=== PATIENT | male | born 1950 | race Caucasian/White ===

== ENCOUNTER 2019-04-26 02:25 | Inpatient (IN) | payer OTHER ==
[~2019-04-26] VITALS: Ht 182.9 cm; Wt 97.7 kg
[2019-04-26] MEDS ORDERED: LISINOPRIL40 MG PO (02:30)
[2019-04-26] MEDS ORDERED: BP MEDS (02:30)
[2019-04-26] MEDS ORDERED: GLUCOPHAGE500 MG PO (02:31)
[2019-04-26] MEDS ORDERED: LANTUS INSULIN10 ML SC (02:31)
[2019-04-26 02:56] LABS: BASOPHILS 0.1 % (0-2); EOSINOPHILS 0 % (0-7); HEMATOCRIT 39.7 % (42.0-54.0); HEMOGLOBIN 14.3 g/dL (13.5-17.5); IMMATURE GRANULOCYTES 0.5 % (0-5); LYMPHOCYTES 5.5 % (15-50); MCH 31.8 pg (26.0-34.0); MCV 88.2 fL (80.0-100.0); MEAN PLATELET VOLUME 10.9 fL (7.4-10.4); MONOCYTES 4.2 % (2-11); NEUTROPHILS 89.7 % (40-80); PLATELET COUNT 242 10x3/uL (130-400); RDW 13.5 % (11.5-14.5); WBC 17.1 10x3/uL (4.8-10.8)
[2019-04-26 02:59] LABS: INR 1.11 (0.85-1.17); PROTIME 13.8 SECONDS (11.6-15.0)
[2019-04-26 03:00] LABS: APTT 45.4 SECONDS (22.8-39.4)
[2019-04-26 03:05] VITALS: BP 164/88
--- NOTE | 2019-04-26 03:08 | NUR ---
PT AMBULATED TO RESTROOM INDEPENDENTLY.
[2019-04-26 03:20] LABS: ALBUMIN 3.5 g/dL (3.4-5.0); ALKALINE PHOSPHATASE 62 U/L (46-116); ALT (SGPT) 39 U/L (10-68); BILIRUBIN - TOTAL 0.53 mg/dL (0.2-1.3); CALCIUM 9.2 mg/dL (8.5-10.1); CARBON DIOXIDE 22.2 mmol/L (21.0-32.0); CHLORIDE - SERUM 96 mmol/L (98-107); CKMB 6.9 U/L (0.0-3.6); CREATINE KINASE 426 UL (21-232); CREATININE - SERUM 2.1 mg/dL (0.6-1.3); POTASSIUM - SERUM 3.9 mmol/L (3.5-5.1); PROTEIN - SERUM 7.9 g/dL (6.4-8.2); SODIUM 135 mmol/L (136-145); UREA NITROGEN 32 mg/dL (7-18); eGFR NON AFRICAN AMERICAN 33 mL/min (90-120)
[2019-04-26 03:22] LABS: CALC OSMOLALITY 297 mosm/kg (275-300); GLUCOSE 475 mg/dL (74-106); TROPONIN-I 0.153 ng/mL (0.000-0.060)
[2019-04-26 03:45] VITALS: BP 148/84
--- NOTE | 2019-04-26 04:44 | NUR ---
PT ARRIVED TO FLOOR VIA WHEELCHAIR ALERT AND ORIENTED X4. PT VITALS STABLE. BP-143/84 P-92 O2-96% T-98.3 RR-18. PT PLACED ON TELEMETRY RUNNING 94 SR, PER UNDERWRITING DIRECTOR. PT COMPLAINS OF 3/10 CHEST PAIN AT THIS TIME. PT NPO AT THIS TIME. 1/2 NORMAL SALINE RUNNING AT 50ML/HR. DR. QUEENIE HANSOND 10MG APRESOLINE IV INJEVTION. PT IS UP ADLIB WITHIUT DIFFICULTY. BED LOW CALL LIGHT WITHIN REACH. WILL CONTINUE TO MONITOR.
[2019-04-26 05:02] VITALS: BP 164/88; BMI 29.2
--- NOTE | 2019-04-26 07:00 | NUR ---
RECEIVED REPORT. ASSUMED CARE OF PATIENT. PATIENT LYING SUPINE WITH EYES OPEN. DENIES NEEDS AT THIS TIME. DENIES HEADACHE OR CHEST PAIN. PATIENT STATES HE THOUGHT HE WAS GOING HOME TODAY. THIS HOSPITAL TRAY SERVICE WORKER EXPLAINED THAT PATIENT IS SCHEDULED TO SEE CARDIOLOGY THIS AM FOR EVENTS BRINGING HIM TO THE HOSPITAL. PATIENT INFORMED TO NOT EAT AM MEAL, NPO UNTIL IS SEEN BY CARDIOLOGY. HERE AT THIS TIME ROUNDING. RESP EVEN AND UNLABORED. NO DISTRESS. CALL LIGHT WITHIN REACH.
[2019-04-26 08:02] VITALS: BP 142/81
--- NOTE | 2019-04-26 09:03 | NUR ---
NEW ORDER TO HOLD HYDRALAZINE PER ENRIQUETA HENDERSON.
[2019-04-26 09:26] LABS: CKMB 9.3 U/L (0.0-3.6); CREATINE KINASE 329 UL (21-232)
[2019-04-26 09:27] LABS: TROPONIN-I 1.211 ng/mL (0.000-0.060)
--- NOTE | 2019-04-26 10:49 | NUR ---
CHARGING PHONE FOR PATIENT AT NURSES STATION. PATIENT RESTING IN BED. NO DISTRESS.
[2019-04-26 11:25] VITALS: Ht 182.9 cm; Wt 97.7 kg
--- NOTE | 2019-04-26 11:38 | NUR ---
FSBS 275. 10 UNITS HUMALOG ADMINISTERED PER SLIDING SCALE. PATIENT STATES HE DOES NOT TAKE LANTUS AT THIS TIME, HE STATES HE TAKES HIS LANTUS AT NIGHT.
--- NOTE | 2019-04-26 11:45 | MORECARE ---
CASE MANAGEMENT DISCHARGE SUMMARY PATIENT: TAVO PINEDA UNIT: [id number] ADM DATE: 04/26/19 AGE: 69 : 50 SEX: M ROOM/BED: D.4420 AUTHOR: OANH BRAVO PHYSICIAN: REFERRING PHYSICIAN: GEORGE LAYTON MD DATE OF SERVICE: 04/26/19 Discharge Plan Patient Name: TAVO PINEDA Facility: [facility]:[place] : 1950 Planned Disposition: [facility] facility Anticipated Discharge Date: 04/26/19 Discharge Date: Expected LOS: 1 Initial Reviewer: [email or web address] Initial Review Date: 04/26/2019 Generated: 04/26/19 12:45 pm DCP- Discharge Planning Updated by [email or web address]: Carin Edwards on 04/26/19 10:[address] Patient Name: TAVO PINEDA Admission Status: ER Accout number: [id number] Admission Date: 04-26-2019 : 1950 Admission Diagnosis: Attending: GEORGE LAYTON Current LOS: 1 Anticipated DC Date: 04-26-2019 Planned Disposition: [place] facility Primary Insurance: [employer] Discharge Planning Comments: CM met with patient to complete initial dc planning assessment. CM educated patient on the CM role and verbal consent given by patient to complete assessment. CM verified patient's address, phone number, and emergency contact phone numbers. Patient lives at home and his son and granddaughter lives with him. He reports she is independent in his care at home. [facility] once arrangements are completed[facility] CM will continue to follow and will assist as needed with dc plans/needs. Necktie Turner: Carin Edwards RN, [facility] DCP- Discharge Planning Updated by [email or web address]: Carin Edwards on 04/26/19 10:[address] Patient listed as [facility], not note on chart that VA was notified of admission. CM had Faleasha with admission go talk to the patient regarding his benefits and deductibles/copay if he stayed. After was informed he decided he wanted to transfer to the [facility]. CM had the patient sign the consent to transfer form for transfer. CM contacted the [facility], spoke to Keyana who stated they do have beds and their doctor would be calling Dr. Layton to complete doc to doc. Patient notified of bed availability at the [place] to anticipate transfer today. DCPIA - Discharge Planning Initial Assessment Updated by [email or web address]: Carin Edwards on 04/26/19 11:42 am * Is the patient Alert and Oriented? Yes * How many steps to enter\exit or inside your home? * PCP [place] [facility] in [place]. He cant remember the doctors name but it is a female. * [facility]acy [facility] * Preadmission Environment Home with Family * ADLs Independent * Equipment Glucometer * List name and contact numbers for known caregivers / representatives who currently or will assist patient after discharge: Christal Pineda - dtr - [phone] * Verbal permission to speak to the caregivers and representatives has been obtained from the patient. Yes * Community resources currently utilized Other * Please name any agencies selected above. telehealth system through [place]. Sends his blood sugar reading and blood pressure to them everyday. * Additional services required to return to the preadmission environment? No * Can the patient safely return to the preadmission environment? Yes * Has this patient been hospitalized within the prior 30 days at any hospital? No Patient Name: TAVO PINEDA Page [id number] at 1145 All edits/amendments must be made on the electronic document DICTATION DATE: 04/26/19 1145 RIPENING ROOM HAND: KLARISSA 04/26/19 1145 RPT#: [id number] DC DATE: STATUS: ADM IN [facility] [address] [place] [address] END OF REPORT
[2019-04-26] MEDS ORDERED: NORVASC5 MG PO (11:48)
[2019-04-26] MEDS ORDERED: COREG12.5 MG PO (11:48)
[2019-04-26 11:49] VITALS: BP 147/78
[2019-04-26] MEDS ORDERED: HYDRALAZINE HCL25 MG PO (11:49)
[2019-04-26] MEDS ORDERED: LISINOPRIL10 MG PO (11:49)
[2019-04-26] MEDS ORDERED: PROTONIX40 MG PO (11:49)
[2019-04-26] MEDS ORDERED: ASPIRIN81 MG PO (11:49)
--- NOTE | 2019-04-26 11:57 | NUR ---
RECEIVED DISCHARGE ORDERS AT THIS TIME. PATIENT IS A VA PATIENT AND ONCE THE VA HAS A BED, PATIENT WILL BE TRANSFERRED. PATIENT RECEIVING IV MAGNESIUM AT THIS TIME. NO DISTRESS.
--- NOTE | 2019-04-26 13:11 | NUR ---
CALLED [facility] AT [phone] AND SPOKE TO GUILLERMO AND GAVE REPORT. PATIENT IS BEING ADMITTED TO ROOM 6D. CALLED SPINE SPECIALIST FOR PAPERWORK. AWAITING PAPERWORK COMPLETION SO AMBULANCE CAN BE CALLED FOR TRANSPORTATION.
[2019-04-26 13:46] LABS: CKMB 8.3 U/L (0.0-3.6); CREATINE KINASE 317 UL (21-232)
[2019-04-26 13:47] LABS: TROPONIN-I 1.864 ng/mL (0.000-0.060)
--- NOTE | 2019-04-26 14:07 | NUR ---
IS THE ACCEPTING PHYSICIAN AT THE MD.
--- NOTE | 2019-04-26 14:08 | NUR ---
RESTING WITH EYES CLOSED, SNORING NOTED. RESP EVEN AND UNLABORED. NO DISTRESS. DISCHARGE UPKEEP MECHANIC IS WORKING ON PATIENT PAPERWORK AT THIS TIME TO TRANSFER TO [facility] IN [place].
--- NOTE | 2019-04-26 14:15 | NUR ---
TRANSFER AUTHORIZATION FORM FILLED OUT AND SIGNED BY ALL PARTIES FROM [facility] REQUIRED FOR TRANSFER.
--- NOTE | 2019-04-26 14:32 | NUR ---
1427 DISCHARGE PAPERWORK SIGNED BY PATIENT. 1432 CALLED [facility] AND SPOKE WITH WILLIAM TO TRANSFER PATIENT. INFORMED IMPREGNATOR [employer] TIME MAY BE ABOUT AN HOUR THEY ARE BUSY AT THIS TIME.
--- NOTE | 2019-04-26 16:01 | NUR ---
RESTING WELL IN BED. STILL AWAITING TRANSPORT FROM EMS. NO DISTRESS. CALL LIGHT WITHIN REACH.
--- NOTE | 2019-04-26 16:22 | NUR ---
FSBS 310. 12 UNITS HUMALOG ADMINISTERED PER SLIDING SCALE. NO DISTRESS.
--- NOTE | 2019-04-26 16:27 | NUR ---
SMALL GLASS OF ORANGE JUICE PROVIDED UPON REQUEST. NO DISTRESS.
--- NOTE | 2019-04-26 17:41 | NUR ---
1720 PATIENT LEFT VIA GERNEY WITH 2 ATTENDANTS. PATIENT TRANSFERRED TO [facility] IN [place]. PATIENT LEFT IN NO DISTRESS WITH ALL PERSONAL BELONGINGS. TELEMETRY RETURNED TO RADIUS GRINDER. PATIENT DID DISCHARGE WITH 20 GAUGE IV TO LEFT LATERAL AC AREA PATIENT IS BEING TRANSFERRED FROM ACUTE CARE SETTING TO ACUTE CARE SETTING VIA EMS.
--- NOTE | 2019-04-28 09:15 | MORECARE ---
CASE MANAGEMENT DISCHARGE SUMMARY PATIENT: TAVO PINEDA UNIT: [id number] ADM DATE: 04/26/19 AGE: 69 : 50 SEX: M ROOM/BED: D.2110 AUTHOR: OANH BRAVO PHYSICIAN: REFERRING PHYSICIAN: GEORGE LAYTON MD DATE OF SERVICE: 04/28/19 Discharge Plan Patient Name: TAVO PINEDA Facility: [facility]:[place] : 1950 Planned Disposition: [facility] facility Anticipated Discharge Date: 04/26/19 Discharge Date: 04/26/2019 Expected LOS: 1 Initial Reviewer: [email or web address] Initial Review Date: 04/26/2019 Generated: 04/28/19 10:14 am DCP- Discharge Planning Updated by [email or web address]: Carin Edwards on 04/26/19 10:[address] Patient Name: TAVO PINEDA Admission Status: ER Accout number: [id number] Admission Date: 04-26-2019 : 1950 Admission Diagnosis: Attending: GEORGE LAYTON Current LOS: 1 Anticipated DC Date: 04-26-2019 Planned Disposition: [place] facility Primary Insurance: [employer] Discharge Planning Comments: CM met with patient to complete initial dc planning assessment. CM educated patient on the CM role and verbal consent given by patient to complete assessment. CM verified patient's address, phone number, and emergency contact phone numbers. Patient lives at home and his son and granddaughter lives with him. He reports she is independent in his care at home. Patient to be transferred to the [place] later today once arrangements are completed. [facility] CM will continue to follow and will assist as needed with dc plans/needs. Line Palletizer: Carin Edwards RN, [facility] DCP- Discharge Planning Updated by [email or web address]: Carin Edwards on 04/26/19 10:[address] Patient listed as [facility], not note on chart that [place] was notified of admission. CM had Faleasha with admission go talk to the patient regarding his benefits and deductibles/copay if he stayed. After was informed he decided he wanted to transfer to the [facility]. CM had the patient sign the consent to transfer form for transfer. CM contacted the [place], spoke to Keyana who stated they do have beds and their doctor would be calling Dr. Layton to complete doc to doc. Patient notified of bed availability at the [place] to anticipate transfer today. DCPIA - Discharge Planning Initial Assessment Updated by [email or web address]: Carin Edwards on 04/26/19 11:42 am * Is the patient Alert and Oriented? Yes * How many steps to enter\exit or inside your home? * PCP [place] [facility] in [place]. He cant remember the doctors name but it is a female. * [facility]acy [facility] * Preadmission Environment Home with Family * ADLs Independent * Equipment Glucometer * List name and contact numbers for known caregivers / representatives who currently or will assist patient after discharge: Christal Pineda - dtr - [phone] * Verbal permission to speak to the caregivers and representatives has been obtained from the patient. Yes * Community resources currently utilized Other * Please name any agencies selected above. telehealth system through [place]. Sends his blood sugar reading and blood pressure to them everyday. * Additional services required to return to the preadmission environment? No * Can the patient safely return to the preadmission environment? Yes * Has this patient been hospitalized within the prior 30 days at any hospital? No Last DP export: 04/26/19 10:45 a Patient Name: TAVO PINEDA Page 41480 at 0915 All edits/amendments must be made on the electronic document DICTATION DATE: 04/28/19913 FIRE BOSS: KLARISSA 04/28/19913 RPT#: [id number] DC DATE:04/26/19 STATUS: DIS IN [facility] [address] [place] [address] END OF REPORT
== END 2019-04-26 17:20 | disposition short-term general hospital (02) | DRG 682 ==
LOC: D.ER 02:25 → OBSVTIME 03:31 → D.M2 03:31
PROVIDERS: Emergency Medicine; ADMIT Internal Medicine Nephrology; ATTEND Internal Medicine Nephrology
DX: N17.9 Acute kidney failure, unspecified (principal); I21.4 Non-ST elevation (NSTEMI) myocardial infarction; I16.9 Hypertensive crisis, unspecified; E87.1 Hypo-osmolality and hyponatremia; R06.00 Dyspnea, unspecified; E83.42 Hypomagnesemia; E78.5 Hyperlipidemia, unspecified; E11.9 Type 2 diabetes mellitus without complications